=== PATIENT | female | born 1975 | race Caucasian/White ===

== ENCOUNTER 2019-11-14 11:15 | Emergency (ER) | payer OTHER, SELFPAY ==
[2019-11-14 11:22] VITALS: BP 156/88; PULSE 108; RESP 20; TEMP 36.8; O2SAT 100
--- NOTE | 2019-11-14 11:51 | ED.GENADULT ---
HPI - General Adult General Chief complaint: Skin/Abscess/Foreign Body Stated complaint: remove stitches Time Seen by Provider: 11/14/19 11:45 Source: patient and RN notes reviewed Mode of arrival: ambulatory Limitations: no limitations History of Present Illness HPI narrative: 44-year-old female presents for suture removal. Reports she had 2 stitches placed on her forehead on June 29. Reports she has been unable to find anyone to remove them due to coronavirus restrictions. She reports she has been using Neosporin twice daily, keeping it covered with a Band-Aid. She denies any redness, drainage, pain, swelling. MD complaint: Suture removal Related Data Home Medications Medication Instructions Recorded Confirmed amitriptyline 25 mg PO HS 11/14/19 11/14/19 amlodipine 10 mg PO DAILY 11/14/19 11/14/19 hydrochlorothiazide 25 mg PO DAILY 11/14/19 11/14/19 insulin glargine [Lantus U-100 25 unit SUBCUT BID 11/14/19 11/14/19 Insulin] insulin lispro [Humalog U-100 1 sliding scale dose SUBCUT 11/14/19 11/14/19 Insulin] USEASDIRECTD Allergies Allergy/AdvReac Type Severity Reaction Status Date / Time No Known Allergies Allergy Verified 11/14/19 11:34 Review of Systems Review of Systems: Narrative: CONSTITUTIONAL: Denies malaise, chills, sweats, or fever. CARDIOVASCULAR: Denies chest pain, palpitations, or edema. RESPIRATORY: Denies cough or dyspnea. SKIN: Reports to intact sutures to the forehead NEUROLOGIC: Denies headache. All systems reviewed & are unremarkable except as noted in HPI and below PMFSH Comments At time of signature, agree with nursing past medical, surgical, social and family history. There is no relevant family history pertinent to the presenting complaint Exam Narrative: Exam Narrative: GENERAL: Well-appearing, well-nourished, and in no acute distress. HEAD: Normocephalic, atraumatic. EYES: PERRLA, conjunctivae clear ENT: Mucous membranes moist. NECK: Supple. CHEST: No respiratory distress. Speaks in full sentences. HEART: Regular rate and rhythm. SKIN: Warm, dry, no rash. 2 intact sutures noted to the mid forehead, no surrounding erythema, induration, drainage, edema. NEURO: Alert and oriented x3. PSYCH: Normal mood and affect Course Course Emergency Course: Patient is aware of diagnosis, understands and agrees to treatment plan. Anticipatory guidance given. Patient agrees to follow-up as directed and is aware of reasons to seek care at the emergency department. Portions of this record may have been created with voice recognition software Vital Signs Vital signs: Vital Signs Temperature 98.3 F 11/14/19 11:22 Pulse Rate 108 H 11/14/19 11:22 Respiratory Rate 11/14/19 11:22 Blood Pressure 156/88 H 11/14/19 11:22 Pulse Oximetry 100 11/14/19 11:22 Temperature 98.3 F 11/14/19 11:22 Pulse Rate 108 H 11/14/19 11:22 Respiratory Rate 11/14/19 11:22 Blood Pressure 156/88 H 11/14/19 11:22 Pulse Oximetry 100 11/14/19 11:22 Reviewed. Patient has history of hypertension Medical Decision Making MDM Narrative Medical decision making narrative: Verbal consent was obtained. Wound well approximated, no erythema, induration, or discharge noted. 2 simple interrupted sutures completely removed in a sterile fashion. Patient tolerated procedure well, no complications. Patient advised to look for and return for any signs of infection such as redness, swelling, discharge, or worsening pain. Vital Signs Vital Signs: Vital Signs Temperature 98.3 F 11/14/19 11:22 Pulse Rate 108 H 11/14/19 11:22 Respiratory Rate 11/14/19 11:22 Blood Pressure 156/88 H 11/14/19 11:22 Pulse Oximetry 100 11/14/19 11:22 Temperature 98.3 F 11/14/19 11:22 Pulse Rate 108 H 11/14/19 11:22 Respiratory Rate 11/14/19 11:22 Blood Pressure 156/88 H 11/14/19 11:22 Pulse Oximetry 100 11/14/19 11:22 Critical Care Time Critical Care Time Critical
== END 2019-11-14 11:55 | disposition home or self-care (01) ==
PROVIDERS: Emergency Provider Nurse Practitioner
DX: S01.81XD Laceration without foreign body of other part of head, subsequent encounter (principal); X58.XXXD Exposure to other specified factors, subsequent encounter; I10 Essential (primary) hypertension; E11.9 Type 2 diabetes mellitus without complications; F32.9 Major depressive disorder, single episode, unspecified; Z79.4 Long term (current) use of insulin
CPT/HCPCS: 99211; G0463